=== PATIENT | male | born 1975 | race Caucasian/White ===

== ENCOUNTER 2019-07-24 19:33 | Emergency (ER) | payer OTHER, SELFPAY ==
[2019-07-24] VITALS (8 sets, daily range): BP systolic 106–167; BP diastolic 57–91; PULSE 86–125; RESP 18–20; TEMP 36.8; O2SAT 97–99
--- NOTE | ~2019-07-24 | XR_ITS ---
XR chest 1V portable 07/24/2019 20:11 Indication: New onset of A. Fib Procedure: AP portable chest Comparison: 04/20/2007 Findings: Heart size normal. No focal air space disease, pulmonary edema, pleural effusion or suspect ed pneumothorax. No acute osseous abnormality. Impression: 1: No acute cardiopulmonary disease. Reviewed, dictated and finalized at location A. Impression: 1: No acute cardiopulmonary disease.
--- NOTE | 2019-07-24 19:37 | ECG_ITS ---
Measurements Intervals [place] Rate: 131 P: [place]: 0 QRS: 76 QRSD: 94 T: -36 QT: 284 QTc: 420 Interpretive Statements ATRIAL FIBRILLATION WITH RAPID VENTRICULAR RESPONSE BORDERLINE ST-T WAVE ABNORMALITY- INFERIOR LEADS ABNORMAL ECG Electronically Signed On 07-25-2019 7:12:37 CDT by Kamron Dill D.O.
--- NOTE | 2019-07-24 19:37 | ED.ARRPALP ---
HPI - Arrhythmia/Palpitations General Chief Complaint: Arrhythmia/Palpitations Stated Complaint: high heart rate Time Seen by Provider: 07/24/19 19:53 Source: patient Mode of arrival: ambulatory Limitations: no limitations History of Present Illness HPI narrative: 44-year-old man who has a remote history of tachycardia for which he was taking metoprolol several years ago comes in tonight complaining of a rapid heart rate. Patient states that he was out taking a walk intermittently jogging when he noticed his heart rate was not returning to normal. His watch told him that his heart rate up to 180. At the time he felt short of breath and some mild chest pressure but he had no nausea, vomiting, lightheadedness, syncope, and has had no recent cough or cold symptoms or illness. He's had a stress test in the past. He has had elevated lipids in the past treated with diet and HTN. He denies family history of CAD, smoking, DM. MD complaint: rapid heart beat and irregular heart beat Onset (ago): hour(s) (2) Duration: constant Severity: moderate Context: occurred during exertion Associated symptoms: chest pain and shortness of breath Related Data Home Medications Medication Instructions Recorded Confirmed losartan 50 mg PO DAILY 07/24/19 07/24/19 mirtazapine 30 mg PO HS 07/24/19 07/24/19 Allergies Allergy/AdvReac Type Severity Reaction Status Date / Time No Known Allergies Allergy Verified 07/24/19 20:06 Review of Systems Constitutional: Constitutional: Denies chills, Denies fatigue and Denies fever(s) Eyes: Eyes: Denies change in vision and Denies photophobia ENT: Denies dysphagia, Denies nasal congestion and Denies sore throat Cardiovascular: Cardiovascular: Reports as per HPI, Reports chest pain and Denies radiating jaw, neck or arm pain Respiratory: Respiratory: Reports as per HPI, Denies cough, Reports dyspnea and Denies wheezing Gastrointestinal: Gastrointestinal: Denies abdominal pain, Denies diarrhea, Denies nausea and Denies vomiting Musculoskeletal: Musculoskeletal: Denies back pain, Denies arthralgias and Denies joint swelling Integumentary/Breasts: Skin/Breast: Denies pruritus, Denies erythema and Denies rash Neurologic: Denies vertigo, Denies dizziness and Denies syncope Psychiatric: Psychiatric: Denies anxiety and Denies depression Endocrine: Endocrine: Denies polydipsia and Denies polyuria Hematologic/Lymphatic: Hematologic/Lymphatic: Denies easy bleeding and Denies easy bruising Allergic/Immunologic: Allergic/Immunologic: Denies throat swelling and Denies tongue swelling PMF Past Medical History Medical History Hypertension Insomnia Tachycardia Social History Social History Smoking status: Never smoker Alcohol intake: former Alcohol use details: None for three months Substance use: never Living arrangements: with family Gender identity (if verbalized by the patient): Male Exam Const: General: no acute distress and alert Orientation/consciousness: patient oriented x3 Limitations: no limitations HENMT: Head: normal to inspection Ears: external ears normal, TM's normal bilaterally and EAC's normal Face and sinus: dry mucous membranes Mouth: Yes Normal oral and palatal mucosa present and Yes moist mucous membranes Throat: posterior oropharynx normal Eyes: Conjunctivae: conjunctivae normal Pupils: Equal, round and reactive pupils present EOM: EOMs intact bilaterally Resp: Effort & Inspection: normal respiratory effort and not labored Auscultation: clear to auscultation bilaterally, no rales, no rhonchi and no wheezes Cardio: Rate: tachycardic Rhythm: abnormal rhythm irregularly irregular Heart sounds: no murmurs GI: Auscultation: normal bowel sounds Other: Nontender nondistended. Skin: General skin exam: normal color, no jaundice and no pallor R
[2019-07-24] MEDS: ASPIRIN 81 MG CHEWABLE TABLET 324 MG PO (20:09)
[2019-07-24 20:30] LABS: Basophils Absolute Auto 0.03 K/mm3 (0.00-0.10); Basophils Percent Auto 0.5 % (0.0-1.0); Eosinophils Absolute Auto 0.17 K/mm3 (0.02-0.50); Eosinophils Percent Auto 3.1 % (1.0-6.0); Hematocrit 43.6 % (40.0-54.0); Hemoglobin 14.6 g/dL (14.0-18.0); Immature Granulocyte Absolute 0.01 K/mm3 (0.00-0.00); Immature Granulocyte Percent A 0.2 % (0.0-0.0); Lymphocytes Absolute Auto 1.64 K/mm3 (1.10-4.50); Lymphocytes Percent Auto 29.4 % (18.0-42.0); Mean Corpuscular HGB Conc 33.5 g/dL (32.0-36.0); Mean Corpuscular Volume 89.7 fL (78.0-102.0); Mean Platelet Volume 8.7 fl (8.7-11.0); Monocytes Absolute Auto 0.61 K/mm3 (0.10-0.90); Neutrophils Absolute Auto 3.1 K/mm3 (1.7-7.2); Neutrophils Percent Auto 55.8 % (50.0-70.0); Platelet Count Result 223 K/mm3 (150-420); Red Blood Count 4.86 M/mm3 (4.70-6.10); Red Cell Distribution Width 12.1 % (11.6-14.4); White Blood Count 5.6 K/mm3 (4.8-10.8)
[2019-07-24 20:32] LABS: Add Urine Microscopic? YES; Appearance Urine Clear (Clear); Bilirubin Urine Negative (Negative); Blood Urine Negative (Negative); Color Urine Yellow (Yellow); Glucose Urine UA Negative (Negative); Ketones Urine 1+ (Negative); Leukocyte Esterase Ur Negative LEU/UL (Negative); Nitrate Urine Negative (Negative); Protein Urine Negative (Negative); Specific Grav Ur <= 1.005 (1.010-1.020); Urobilinogen Urine 0.2 mg/dL (0.2-1.0); pH Urine 5.5 (5.0-8.0)
[2019-07-24 20:39] LABS: INR 1.1; Partial Thromboplastin Time 24.3 SEC (22.3-31.6); Prothrombin Time 11.3 Seconds (9.64-11.0)
--- NOTE | 2019-07-24 20:39 | PC.NURSE ---
Currently denies chest pain but report mild chest tightness. Denies SOB. Diltiazem 20mg IVP bolus given. Verbal order Dr Petty to hold IV infusion at this time. Will continue to monitor.
[2019-07-24 20:44] LABS: BNP 5.5 pg/mL (0-100)
[2019-07-24 20:45] LABS: Bacteria Urine Trace /hpf; RBC Urine 0-2 /hpf (0-2); Squamous Epithelial Cell Urine Rare /hpf (Few); WBC Urine 0-3 /hpf (0-3)
[2019-07-24 20:47] LABS: Amphetamine Screen Urine Negative (Negative); Barbiturate Screen Urine Negative (Negative); Benzodiazepines Screen Urine Negative (Negative); Cannabinoid Screen Urine Negative (Negative); Cocaine Screen Urine Negative (Negative); Methadone Screen Urine Negative (Negative); Opiate Screen Urine Negative (Negative); Phencyclidine Screen Urine Negative (Negative)
[2019-07-24 20:50] LABS: Alanine Aminotransferase 32 U/L (16-63); Albumin Level 4.2 g/dL (3.4-5.0); Alkaline Phosphatase 38 U/L (46-116); Anion Gap 20.8 mmol/L (7-16); Aspartate Amino Transferase 17 U/L (15-37); Bilirubin,Total 0.5 mg/dL (0.00-1.00); Blood Urea Nitrogen 19 mg/dL (7-18); Calcium 8.9 mg/dL (8.5-10.1); Carbon Dioxide 21 mmol/L (21-32); Chloride 102 mmol/L (98-108); Estimated CRCL calculation 81 ml/min; Estimated Glomerular Filt Rate > 60; Glucose 76 mg/dL (70-99); Magnesium 2.2 mg/dL (1.8-2.4); Osmolality Calculated 291 mOsm/kg (285-295); Phosphorus 3.6 mg/dL (2.6-4.7); Potassium 3.8 mmol/L (3.5-5.1); Sodium 140 mmol/L (136-145); Total Protein 7.2 g/dL (6.4-8.2)
[2019-07-24 20:51] LABS: Thyroid Stimulating Hormone Reflex 1.71 u/IU/mL (0.36-3.74); Troponin I < 0.02 ng/mL (0.00-0.056)
--- NOTE | 2019-07-24 20:58 | PC.NURSE ---
Call placed to [facility] to speak with readiness paraprofessional for Dr Cordon, Cardiology. Awaiting call back.
--- NOTE | 2019-07-24 21:19 | PC.NURSE ---
No change in pt condition. CM shows afib, rate 86. [facility] returned call but upon doing so were told by Dr Petty that he now needed to speak with the hospitalist for possible transfer. Now awaiting callback from hospitalist. Verbal order Dr Petty to continue to hold dilitiazem infusion at this time.
--- NOTE | 2019-07-24 21:39 | PC.NURSE ---
[facility]
--- NOTE | 2019-07-24 21:55 | PC.NURSE ---
Dr Petty at bedside talking to pt about plan for transfer.
--- NOTE | 2019-07-24 22:04 | PC.NURSE ---
Report to [facility] access line. [facility] contacted for transport.
--- NOTE | 2019-07-24 22:07 | PC.NURSE ---
[facility] contacted for transport to [facility]
== END 2019-07-24 22:32 | disposition short-term general hospital (02) ==
PROVIDERS: Emergency Provider Emergency Medicine; PCP Internal Medicine
DX: I48.91 Unspecified atrial fibrillation (principal); I10 Essential (primary) hypertension; Z79.899 Other long term (current) drug therapy; R06.02 Shortness of breath
CPT/HCPCS: 36415; 71045; 80053; 80307; 81001; 83735; 83880; 84100; 84443; 84484; 85025; 85610; 85730; 93005; 96374; 99285; A9270

== ENCOUNTER 2021-08-27 21:46 | Emergency (ER) | payer BC, SELFPAY ==
--- NOTE | ~2021-08-27 | XR_ITS ---
EXAMINATION: XR chest 1V portable DATE: 08/27/2021 22:19 INDICATION: Chest tightness. Shortness of breath. TECHNIQUE: A single frontal view of the chest was obtained. COMPARISON: Chest single view 07/24/2019, CT abdomen and pelvis 10/10/2015 FINDINGS: The chest demonstrates clear lungs without pneumonia, pleural effusion, or pneumothorax. Th e heart size is normal. IMPRESSION: 1. No acute cardiopulmonary disease. Reviewed, dictated and finalized at location A.
[2021-08-27 21:55] VITALS: BP 152/103; PULSE 85; RESP 20; TEMP 36.1; O2SAT 100
--- NOTE | 2021-08-27 21:57 | ECG_ITS ---
Measurements Intervals [place] Rate: 82 P: 34 MI: 159 QRS: 57 QRSD: 115 T: 85 QT: 355 QTc: 415 Interpretive Statements SINUS RHYTHM CONSIDER ANTEROLATERAL INFARCT, AGE INDETERMINATE INFERIOR ST ELEVATION MYOCARDIAL INFARCT- ACUTE POSTERIOR INFARCT, ACUTE ABNORMAL ECG Electronically Signed On 08-28-2021 6:49:44 CDT by Kamron Dill D.O.
[2021-08-27] MEDS: NITROGLYCERIN SL 0.4 MG TABLET SUBLINGUAL ×2 (22:15→22:21)
[2021-08-27 22:18] LABS: Basophils Absolute Auto 0.05 K/mm3 (0.00-0.10); Basophils Percent Auto 0.6 % (0.0-1.0); Eosinophils Absolute Auto 0.19 K/mm3 (0.02-0.50); Eosinophils Percent Auto 2.2 % (1.0-6.0); Hematocrit 46.7 % (40.0-54.0); Hemoglobin 15.5 g/dL (14.0-18.0); Immature Granulocyte Absolute 0.03 K/mm3 (0.00-0.00); Immature Granulocyte Percent A 0.3 % (0.0-0.0); Lymphocytes Percent Auto 18.2 % (18.0-42.0); Mean Corpuscular HGB Conc 33.2 g/dL (32.0-36.0); Mean Corpuscular Hemoglobin 29.6 pg (27.0-31.0); Mean Corpuscular Volume 89.3 fL (78.0-102.0); Mean Platelet Volume 8.3 fl (8.7-11.0); Monocytes Absolute Auto 0.79 K/mm3 (0.10-0.90); Neutrophils Absolute Auto 6.1 K/mm3 (1.7-7.2); Neutrophils Percent Auto 69.7 % (50.0-70.0); Platelet Count Result 252 K/mm3 (150-420); Red Blood Count 5.23 M/mm3 (4.70-6.10); Red Cell Distribution Width 12.3 % (11.6-14.4); White Blood Count 8.8 K/mm3 (4.8-10.8)
[2021-08-27] MEDS: ONDANSETRON INJ 4 MG/2 ML VIAL IV PUSH (22:18)
[2021-08-27] MEDS: ASPIRIN 81 MG CHEWABLE TABLET 324 MG PO (22:18)
[2021-08-27 22:23] VITALS: BP 129/88
[2021-08-27 22:26] VITALS: PULSE 85
[2021-08-27 22:43] LABS: Alanine Aminotransferase 27 U/L (16-63); Albumin Level 4.1 g/dL (3.4-5.0); Alkaline Phosphatase 55 U/L (46-116); Anion Gap 6 mmol/L (8-16); Aspartate Amino Transferase 17 U/L (15-37); Bilirubin,Total 0.4 mg/dL (0.00-1.00); Blood Urea Nitrogen 20 mg/dL (7-18); Calcium 8.9 mg/dL (8.5-10.1); Carbon Dioxide 29 mmol/L (21-32); Chloride 101 mmol/L (98-108); Estimated CRCL calculation 87 ml/min; Estimated Glomerular Filt Rate > 60; Glucose 110 mg/dL (70-99); NT Pro B Type Natriuretic Pept 19 pg/mL (0-125); Osmolality Calculated 285 mOsm/kg (285-295); Sodium 136 mmol/L (136-145); Total Protein 7.5 g/dL (6.4-8.2)
[2021-08-27 22:49] LABS: Troponin I 117.3 ng/L (0.00-60.4)
--- NOTE | 2021-08-27 22:53 | ECG_ITS ---
Measurements Intervals [place] Rate: 84 P: 49 SC: 160 QRS: 50 QRSD: 118 T: 57 QT: 349 QTc: 414 Interpretive Statements SINUS RHYTHM CONSIDER ANTEROLATERAL INFARCT, AGE INDETERMINATE INFERIOR INFARCT, AGE INDETERMINATE BORDERLINE ST-T WAVE ABNORMALITY- HIGH LATERAL LEADS BASELINE WANDER- I, II, V2, V5 ABNORMAL ECG Electronically Signed On 08-28-2021 6:48:40 CDT by Kamron Dill D.O.
--- NOTE | 2021-08-27 23:10 | PC.NURSE ---
2nd EKG performed at 2301, labs back and reported elevated trop to ERP, Dr Moreno called stat heart team to activate a stat heart. Protocol paged overhead ans paperwork filled out per protocol.
--- NOTE | 2021-08-27 23:11 | PC.NURSE ---
Pt still having some slight c/p, reports some better, VSS. ERP spoke ot Dr Medrano, account support manager at [facility],. pt wants to go to [facility] as his cardilogists are located there.
--- NOTE | 2021-08-27 23:27 | PC.NURSE ---
Call back received fro printer slotter feeder Dr Medrano, pt will not go to laboratory mechanical technician, PCI protocol still ordered but pt will go by ground crew and will await a bed for placement at this time. pt. restin, monitor shows NSR, VSS.
[2021-08-27 23:28] VITALS: BP 150/99; PULSE 89; RESP 18; O2SAT 99
--- NOTE | 2021-08-27 23:40 | ED.CHESTPAIN ---
HPI - Chest Pain General Chief Complaint: Chest Pain Stated Complaint: TIGHTNESS IN CHEST Time Seen by Provider: 08/27/21 21:49 Source: patient and RN notes reviewed Mode of arrival: ambulatory Limitations: no limitations History of Present Illness MD complaint: chest pain Pertinent past history: other (afib with ablation.) Onset (ago): hour(s) (1) Timing of current episode: constant Prior episodes: No Onset: during exertion Pain location: left chest Pain radiation: none Severity: moderate Pain scale (0-10): 5 Quality: tightness, aching and heaviness Relieving factors: nothing Exacerbating factors: exertion Associated symptoms: nausea Treatment prior to arrival: none Related Data Home Medications Medication Instructions Recorded Confirmed diltiazem HCl 240 mg 240 mg PO DAILY 08/27/21 08/27/21 capsule,extended release 24 hr Allergies Allergy/AdvReac Type Severity Reaction Status Date / Time No Known Allergies Allergy Verified 07/24/19 20:06 Review of Systems Review of Systems: All systems reviewed & are unremarkable except as noted in HPI and below Constitutional: Constitutional: Reports no additional constitutional complaints Eyes: Eyes: Reports no additional eye complaints ENT: Reports system reviewed and no additional complaints, except as documented Cardiovascular: Cardiovascular: Reports no additional cardiovascular complaints Respiratory: Respiratory: Reports no additional respiratory complaints Gastrointestinal: Gastrointestinal: Reports no additional gastrointestinal complaints Musculoskeletal: Musculoskeletal: Reports no additional musculoskeletal complaints Integumentary/Breasts: Skin/Breast: Reports system reviewed and no additional complaints, except as docu Neurologic: Reports system reviewed and no additional complaints, except as documented Psychiatric: Psychiatric: Reports no additional psychiatric complaints Endocrine: Endocrine: Reports no additional endocrine complaints Hematologic/Lymphatic: Hematologic/Lymphatic: Reports no additional hematologic/lymphatic complaints Allergic/Immunologic: Allergic/Immunologic: Reports no additional allergic/immunologic complaints PMFSH Past Medical History Medical History Atrial fibrillation Chest pain Hypertension Insomnia Tachycardia Social History Social History Smoking status: Never smoker Alcohol intake: former Alcohol use details: None for three months Substance use: never Gender identity (if verbalized by the patient): Male Exam Const: General: healthy appearing and no acute distress Nutritional Appearance: well nourished Orientation/consciousness: patient oriented x3 Limitations: no limitations HENMT: Head: normal to inspection Ears: external ears normal, TM's normal bilaterally and EAC's normal General nose exam: Normal external nose present and Normal nares present Face and sinus: normal facial exam and sinuses nontender Mouth: Yes Normal oral and palatal mucosa present and Yes moist mucous membranes Teeth and gingiva: dentition normal Throat: posterior oropharynx normal Eyes: Conjunctivae: conjunctivae normal Pupils: Equal, round and reactive pupils present EOM: EOMs intact bilaterally Neck: Neck: normal visual inspection, no lymphadenopathy and no meningeal signs Chest: Chest palpation & inspection: normal inspection of the chest Resp: Effort & Inspection: normal respiratory effort Auscultation: clear to auscultation bilaterally Cardio: Rate: regular rate Rhythm: regular rhythm GI: GI Palp: Yes Soft to palpation and No Tenderness to palpation present (GI) Auscultation: normal bowel sounds : General: Yes bladder normal to palpation and Yes no CVA tenderness Back/Spine/Pelvis: Back: no CVA tenderness Skin: General skin exam: normal color Rashes: no rashes Wounds: no wounds
[2021-08-27] MEDS: SODIUM CHLORIDE 0.9% IV 500 ML 999 ML IV CONT (23:49)
[2021-08-27 23:50] VITALS: PULSE 93
[2021-08-27] MEDS: METOPROLOL TARTRATE INJ 5 MG/5 ML VIAL IV PUSH (23:50)
[2021-08-27] MEDS: NITROGLYCERIN OINTMENT 1 INCH DOSE TRANSDERM (23:51)
[2021-08-27 23:55] VITALS: BP 147/92; PULSE 93; RESP 20; TEMP 36.4; O2SAT 100
--- NOTE | 2021-08-27 23:57 | PC.NURSE ---
Pt transferred c Heparin gtt continuing to infuse and NS bolus infusing.
--- NOTE | 2021-08-28 00:13 | PC.NURSE ---
Pt. loaded to EMS cot c GBAAS, report given, pt stable at this time, VSS, fluids continue to infuse as per order.
== END 2021-08-28 00:13 | disposition short-term general hospital (02) ==
PROVIDERS: Emergency Provider Emergency Medicine; PCP Internal Medicine
DX: I21.4 Non-ST elevation (NSTEMI) myocardial infarction (principal); R07.9 Chest pain, unspecified
CPT/HCPCS: 36415; 71045; 80053; 83880; 84484; 85025; 93005; 96374; 96375; 99285; A9270; J2405; J7040

== ENCOUNTER 2022-10-14 07:21 | Outpatient (CLI) | payer BC, SELFPAY ==
--- NOTE | ~2022-10-14 | CT_ITS ---
CT of the Abdomen and Pelvis: Indication: Abdominal pain Technique: 2.5 mm axial scans were obtained through the abdomen and pelvis following intravenous adm inistration of 100 cc of Omnipaque 350. Dose reduction technique was used on this scan by utilizing a utomated exposure control and iterative reconstruction technique. The dose-length product (DLP) was 9 45.07 mGy-cm. COMPARISON: 10/10/2015 Findings: Scans through the lung bases are unremarkable. The liver, spleen, pancreas, gallbladder, adrenals and kidneys are within normal limits. No evidence of aortic aneurysm. No lymphadenopathy. Questional mild extensive wall thickening of large bowel. There is prominent stool at the sigmoid col on and rectum. No abscess or free air. No bowel obstruction. Images through the pelvis were performed. Urinary bladder unremarkable. Prostate gland and seminal ve sicles are unremarkable. No ascites. Impression: Questionable mild wall thickening of large bowel, especially transverse and descending colon. Correla te for infectious/inflammatory colitis versus underdistention. Prominent stool sigmoid colon and rectum, which could reflect constipation. Reviewed, dictated and finalized at location . Impression: Questionable mild wall thickening of large bowel, especially transverse and nika cending colon. Correlate for infectious/inflammatory colitis versus underdisten tion. Prominent stool sigmoid colon and rectum, which could reflect constipation.
[2022-10-14 07:49] LABS: Estimated Glomerular Filt Rate > 60
== END 2022-10-14 07:22 | disposition home or self-care (01) ==
PROVIDERS: PCP Internal Medicine; Visit Provider Internal Medicine
DX: R10.9 Unspecified abdominal pain (principal); R19.4 Change in bowel habit
CPT/HCPCS: 74177; Q9967

== ENCOUNTER 2022-11-10 01:21 | Day surgery (SDC) | payer BC, SELFPAY ==
[2022-10-31 14:37] VITALS: BMI 28.4
--- NOTE | 2022-10-31 16:09 | PC.NURSE ---
SPOKE WITH CHERELLE IN DR. RUBI'S OFFICE REGARDING PT CONCERNS ABOUT PREP FOR COLONOSCOPY. HE HAS ISSUES WITH CONSTIPATION AND WANTS TO MAKE SURE PREP IS ENOUGH TO PROPERLY CLEAN HIM OUT. SHE WILL DISCUSS WITH DR. Barton AND CALL PT IF NECESSARY.
[2022-11-10 07:35] VITALS: BP 131/91; PULSE 90; RESP 20; TEMP 36.6; O2SAT 100; BMI 28.5
[2022-11-10] MEDS: LACTATED RINGERS 1,000 ML 150 ML IV CONT (07:48)
--- NOTE | 2022-11-10 08:20 | WPDANESEPPF ---
Anes - Initial Pre Proc Eval Procedure: Operation Date: 11/10/22 08:30 Proposed Procedures p Colonoscopy - Drake Cantu DO Date/Time: 11/10/22 08:20 Surgeon: Drake Cantu DO Pre Op Diagnosis: change in bowel habits Patient Data Age: 47 Gender: M Height: 1.85 m Weight: 98.1 kg Last Vital Signs Temp 97.9 F 11/10/22 07:35 Pulse 90 11/10/22 07:35 Resp 20 11/10/22 07:35 BP 131/91 H 11/10/22 07:35 Pulse Ox 100 11/10/22 07:35 O2 Del Method Room Air 11/10/22 07:35 Allergies Allergy/AdvReac Type Severity Reaction Status Date / Time No Known Allergies Allergy Verified 11/10/22 07:31 Home Medications Medication Instructions Recorded Confirmed Type diltiazem HCl 240 mg 240 mg PO DAILY 08/27/21 11/10/22 History capsule,extended release 24 hr aspirin 81 mg tablet,delayed 81 mg PO DAILY 06/01/22 10/31/22 History release (Adult Aspirin Regimen) atorvastatin 80 mg tablet 80 mg PO DAILY 06/01/22 10/31/22 History fluticasone propionate 50 1 - 2 spray intranasal BID PRN 06/01/22 10/31/22 History mcg/actuation nasal ALLERGIES spray,suspension (Flonase Allergy Relief) pantoprazole 40 mg tablet,delayed 40 mg PO QAM 06/01/22 10/31/22 History release ticagrelor 90 mg tablet (Brilinta) 90 mg PO Q12H 06/01/22 11/10/22 History buspirone 10 mg tablet 15 mg PO BID 10/31/22 11/10/22 History carvedilol 3.125 mg tablet 3.125 mg PO BID 10/31/22 11/10/22 History coQ10 (ubiquinol) 200 mg capsule 200 mg PO DAILY 10/31/22 10/31/22 History omega-3 fatty acids 1,250 mg PO DAILY 10/31/22 10/31/22 History Patient hx anesthesia problems: none Family hx anesthesia problems: none Results Review: All pre-operative results and documents have been reviewed as part of the pre-operative evaluation. [facility], LAT[facility] Past Medical History Medical History Atrial fibrillation Chest pain Heart attack Hypertension Insomnia Tachycardia Family History Family History Father Cancer Mother Hypertension Depression Heart disease Social History Social History Smoking packs per day: 1 Smoking cigarettes per day: 20.0 Years smoked: 15 Smoking pack-years: 15.00 Smoking status: Former smoker Tobacco type: cigarettes Alcohol intake: current Drinks per week: 2 Alcohol use details: BEERS Substance use: never Substance use type: does not use Living arrangements: with family Gender identity (if verbalized by the patient): Male Spiritual care concerns: No Anes - Eval Final PreProcedure Day of Procedure 11/10/22 08:20 Patient weight: normal Heart: regular rate and rhythm Lungs: clear to auscultation Airway: Mallampati scale class II Neurological: alert and oriented Last oral intake: >/= 8 hours ASA classification: III Emergent: no Anesthetic plan: proceed Anesthesia type and monitoring: general GIVS and standard monitoring Results Review: All pre-operative results and documents have been reviewed as part of the pre-operative evaluation. Informed Consent: The patient's anesthetic plan and its attendant risks and benefits were discussed with the patient/family/POA. Questions were solicited and answers provided to the satisfaction of the patient/family/POA.
--- NOTE | 2022-11-10 08:25 | PM.IMHP ---
H&P: HPI History of Present Illness Date/Time: 11/10/22 08:25 Chief Complaint: Abdominal pain, abnormal CT abdomen Narrative: This is a 47-year-old man who presents for colonoscopy. He has never had a colonoscopy before. He was having some abdominal pain and constipation issues. A CT of his abdomen showed some mild wall thickening of his transverse colon. He denies any blood in his stool. He denies any family history of colon cancer. Review of Systems Review of Systems: All systems reviewed & are unremarkable except as noted in HPI and below Constitutional: Constitutional: Denies chills, Denies fever(s), Denies headache(s) and Denies weight loss Eyes: Eyes: Denies change in vision ENT: Denies dizziness, Denies headache(s), Denies neck mass and Denies throat swelling Cardiovascular: Cardiovascular: Denies chest pain, Denies lightheadedness and Denies dyspnea Respiratory: Respiratory: Denies cough, Denies dyspnea and Denies wheezing Gastrointestinal: Gastrointestinal: Reports as per HPI, Denies nausea and Denies vomiting Genitourinary: Genitourinary: Denies hematuria and Denies dysuria Musculoskeletal: Musculoskeletal: Reports as per HPI Integumentary/Breasts: Skin/Breast: Reports as per HPI Neurologic: Denies dizziness and Denies headache(s) Allergic/Immunologic: Allergic/Immunologic: Denies throat swelling and Denies wheezing PMFSH Past Medical History Medical History Atrial fibrillation Chest pain Heart attack Hypertension Insomnia Tachycardia Family History Family History Father Cancer Mother Hypertension Depression Heart disease Social History Social History Smoking packs per day: 1 Smoking cigarettes per day: 20.0 Years smoked: 15 Smoking pack-years: 15.00 Smoking status: Former smoker Tobacco type: cigarettes Alcohol intake: current Drinks per week: 2 Alcohol use details: BEERS Substance use: never Substance use type: does not use Living arrangements: with family Gender identity (if verbalized by the patient): Male Spiritual care concerns: No Meds Home Medications and Allergies Home Medications Medication Instructions Recorded Confirmed Type diltiazem HCl 240 mg 240 mg PO DAILY 08/27/21 11/10/22 History capsule,extended release 24 hr aspirin 81 mg tablet,delayed 81 mg PO DAILY 06/01/22 11/10/22 History release (Adult Aspirin Regimen) atorvastatin 80 mg tablet 80 mg PO DAILY 06/01/22 11/10/22 History fluticasone propionate 50 1 - 2 spray intranasal BID PRN 06/01/22 11/10/22 History mcg/actuation nasal ALLERGIES spray,suspension (Flonase Allergy Relief) pantoprazole 40 mg tablet,delayed 40 mg PO QAM 06/01/22 11/10/22 History release ticagrelor 90 mg tablet (Brilinta) 90 mg PO Q12H 06/01/22 11/10/22 History buspirone 10 mg tablet 15 mg PO BID 10/31/22 11/10/22 History carvedilol 3.125 mg tablet 3.125 mg PO BID 10/31/22 11/10/22 History coQ10 (ubiquinol) 200 mg capsule 200 mg PO DAILY 10/31/22 11/10/22 History omega-3 fatty acids 1,250 mg PO DAILY 10/31/22 11/10/22 History Allergies Allergy/AdvReac Type Severity Reaction Status Date / Time No Known Allergies Allergy Verified 11/10/22 07:31 Vital Signs Vital Signs - 24 hr 11/10/22 07:35 Temperature 36.6 C Pulse Rate 90 Respiratory Rate 20 Blood Pressure 131/91 H Pulse Oximetry 100 Oxygen Delivery Room Air Exam Const: General: no acute distress and alert Orientation/consciousness: patient oriented x3 HENMT: Head: normocephalic and atraumatic Ears: hearing grossly normal bilaterally Face/Nose/Sinus: Normal nares present Mouth: Yes Normal oral and palatal mucosa present Eyes: Periorbital: periorbital findings normal Sclera: sclerae normal EOM: EOMs intact bilaterally Neck: Nec
[2022-11-10 08:54] VITALS: BP 141/122; PULSE 73; RESP 20; O2SAT 98
[2022-11-10 09:04] VITALS: BP 94/69; PULSE 70; RESP 15; O2SAT 98
[2022-11-10 09:14] VITALS: BP 110/75; PULSE 60; RESP 15; O2SAT 98
== END 2022-11-10 09:24 | disposition home or self-care (01) ==
PROVIDERS: PCP Internal Medicine; Visit Provider Surgery
PROC: 0DJD8ZZ Inspection of Lower Intestinal Tract, Via Natural or Artificial Opening Endoscopic (ICD-10-PCS; CPT 45378; principal; 2022-11-10 08:30)
DX: K57.30 Diverticulosis of large intestine without perforation or abscess without bleeding (principal); D12.3 Benign neoplasm of transverse colon; K63.89 Other specified diseases of intestine; I48.91 Unspecified atrial fibrillation; I10 Essential (primary) hypertension; G47.00 Insomnia, unspecified; I25.2 Old myocardial infarction; Z87.891 Personal history of nicotine dependence; Z79.51 Long term (current) use of inhaled steroids; Z79.82 Long term (current) use of aspirin; Z79.02 Long term (current) use of antithrombotics/antiplatelets
CPT/HCPCS: 45380; 88305; J2704; J7120